=== PATIENT | female | born 1980 | race Caucasian/White ===

== ENCOUNTER 2023-11-04 09:34 | Outpatient (CLI) | payer MEDICAID ==
[~2023-11-04 09:34] MED LIST: ALPR-624 PO; ALPR1TAB7 PO; CLIN-214 PO; CYCL-1 PO; HYDR-4383 PO; PROM25TA14 PO; QUET-1 PO; QUET25TA PO; TOP100T PO; TRAZ150T78 PO
== END 2023-11-04 23:59 | disposition home or self-care (01) ==
LOC: RAD 09:34
PROVIDERS: ATTEND Nurse Practitioner Family
DX: R56.9 Unspecified convulsions (principal)
CPT/HCPCS: 95816

== ENCOUNTER 2023-11-15 14:30 | Inpatient (IN) | payer MEDICAID ==
[2023-11-15] VITALS (10 sets, daily range): BP systolic 120–134; BP diastolic 72–86; PULSE 71–102; RESP 16–28; TEMP 96.8–97.9; O2SAT 93–100
[~2023-11-15] VITALS: Ht 162.6 cm; Wt 77.5 kg
[2023-11-15 15:02] LABS: BASOPHILS # (AUTO) 0.1 X10'3 (0-0.2); BASOPHILS % (AUTO) 0.6 % (0-1); EOSINOPHILS # (AUTO) 0.2 X10'3 (0-0.9); EOSINOPHILS % (AUTO) 1.2 % (0-6); HEMATOCRIT 37.6 % (35.0-45.0); HEMOGLOBIN 12.3 g/dl (12.0-16.0); LYMPHOCYTES % (AUTO) 31.4 % (21-51); MEAN CORPUSCULAR HEMOGLOBIN 30.9 PG (27.0-31.0); MEAN CORPUSCULAR HGB CONC 32.8 g/dL (33.0-36.5); MEAN CORPUSCULAR VOLUME 94.1 FL (78-98); MEAN PLATELET VOLUME 9.2 FL (7.4-10.4); MONOCYTES # (AUTO) 0.7 X10'3 (0-0.9); MONOCYTES % (AUTO) 5.3 % (2-12); NEUTROPHILS # (AUTO) 7.8 X10'3 (1.8-7.7); NEUTROPHILS % (AUTO) 61.5 % (42-75); PLATELET COUNT 321 X10'3 (140-440); RED BLOOD COUNT 3.99 X10'6 (4.20-5.60); RED CELL DISTRIBUTION WIDTH 14.5 % (11.5-14.5); WHITE BLOOD COUNT 12.7 X10'3 (4.5-11.0)
[2023-11-15 15:15] LABS: ALANINE AMINOTRANSFERASE 13 U/L (12-78); ALBUMIN 2.6 G/DL (3.4-5.0); ALBUMIN/GLOBULIN RATIO 0.7 (1.1-1.5); ALKALINE PHOSPHATASE 64 IU/L (46-116); ANION GAP 10 (8-16); BILIRUBIN,TOTAL 0.3 MG/DL (0.1-1.0); BLOOD UREA NITROGEN 8 MG/DL (7-18); BUN/CREATININE RATIO 15.4 (10.0-20.0); CALCIUM 7.9 MG/DL (8.5-10.1); CHLORIDE 110 MMOL/L (99-107); CREATININE 0.52 MG/DL (0.40-0.90); GLUCOSE 78 MG/DL (70-104); LIPASE 25 U/L (16-77); SODIUM 145 MMOL/L (135-145); TOTAL CARBON DIOXIDE 25.4 MMOL/L (24-32); TOTAL PROTEIN 6.1 G/DL (6.4-8.2); eCRCL 118 ML/MIN; eGFR > 90 ML/MIN
[2023-11-15] MEDS: ondansetron/PF 4mg/2ml inj IV ONE (15:18)
[2023-11-15] MEDS: HYDROmorphone 1 mg/ml syringe IV ONE ×2 (15:19→17:13)
[2023-11-15 15:23] LABS: ASPARTATE AMINO TRANSFERASE 21 U/L (10-37); POTASSIUM 3.8 MMOL/L (3.5-5.1)
[2023-11-15] MEDS ORDERED: iohexol 300mg/ml 100ml inj. ONE (15:41)
[2023-11-15] MEDS ORDERED: ondansetron 4mg rapidly disintigrating tab PO PRN (17:20)
[2023-11-15] MEDS ORDERED: HYDROmorphone/PF 0.2 MG/ML SYRINGE IV PRN (17:20)
[2023-11-15] MEDS ORDERED: magnesium Cl slow-release 64mg tablet PO PRN (17:20)
[2023-11-15] MEDS ORDERED: magnesium hydroxide 30ml (MOM) UD suspension PO PRN (17:20)
[2023-11-15] MEDS ORDERED: acetaminophen 325mg tablet PO PRN ×2 (17:20)
[2023-11-15] MEDS ORDERED: mag hydrox/Alum hydrox/simeth 30ml oral suspension PO PRN (17:20)
[2023-11-15] MEDS ORDERED: magnesium 4gm in 100ml NS 100 ML IV PRN (17:20)
[2023-11-15] MEDS ORDERED: HYDROcodone/acetaminophen 10/325mg tab PO PRN (17:20)
[2023-11-15] MEDS ORDERED: HYDROcodone/acetaminophen 5mg/325mg tablet PO PRN (17:20)
[2023-11-15] MEDS ORDERED: magnesium 2GM in 50ml NS 50 ML IV PRN (17:20)
[2023-11-15] MEDS ORDERED: potassium Cl 20 mEq SR tablet PO PRN (17:20)
[2023-11-15] MEDS ORDERED: potassium Cl 40MEQ/1/2NS 520ml 520 ML IV PRN (17:20)
[2023-11-15] MEDS ORDERED: metoclopramide 5 mg/ml inj IV PRN (17:20)
[2023-11-15] MEDS ORDERED: labetalol 20mg/4ml (5mg/ml) syringe IV PRN (17:55)
[2023-11-15] MEDS ORDERED: fentaNYL/PF 50MCG/1 ML 2ML syringe IV PRN ×2 (17:55)
[2023-11-15] MEDS ORDERED: ondansetron/PF 4mg/2ml inj IV PRN (17:55)
[2023-11-15] MEDS ORDERED: hydrALAZINE 20mg/ml inj. IV PRN (17:55)
[2023-11-15] MEDS ORDERED: morphine 2 MG/ML inj. syringe IV PRN (17:55)
[2023-11-15] MEDS: piperacillin/tazo 3.375gm/50ml 50 ML IV ONE (18:10)
[2023-11-15] MEDS: normal saline 1000ml 1,000 ML IV SCH (18:10)
[2023-11-15 18:17] LABS: INR 1.1 INR
[2023-11-15 18:26] LABS: URINE HCG NEGATIVE (NEG)
[2023-11-15 18:32] LABS: BILIRUBIN,URINE NEGATIVE (Neg); CLARITY,URINE CLEAR (Clear); COLOR,URINE STRAW (Yellow); GLUCOSE, URINE NEGATIVE (Neg); KETONES,URINE 15 mg/dl (Neg); LEUKOCYTE ESTERASE ,URINE NEGATIVE (Neg); OCCULT BLOOD,URINE NEGATIVE (Neg); PROTEIN,URINE NEGATIVE (Neg); UROBILINOGEN,URINE 0.2 E.U/dL (0.2-1.0)
[2023-11-15 18:40] LABS: APTT 28 SECONDS (22-32); PROTHROMBIN TIME 11.4 SECONDS (9.0-12.0)
[2023-11-15 18:48] LABS: UA COLLECTION TYPE CLN CATCH MIDSTREAM
[2023-11-15 18:49] LABS: NITRITES, URINE NEGATIVE (Neg)
[2023-11-15] MEDS: HYDROmorphone inj. 0.5 MG/0.5 ML DISP.SYRIN IV PRN (19:48)
[2023-11-15] MEDS: K and/or MAG REPLACEMENT MC SCH (20:00)
[2023-11-15] MEDS: docusate sod 100mg capsule PO SCH (20:00)
[2023-11-15] MEDS ORDERED: sevoflurane 250ml liquid IH ONE (20:14)
[2023-11-15] MEDS ORDERED: MIDAZolam 1 MG/ML 5ML VIAL ONE (20:21)
[2023-11-15] MEDS ORDERED: fentaNYL /PF 50mcg/ml 5ml ampule ONE (20:21)
[2023-11-15] MEDS ORDERED: LIDOcaine 2% (20mg/ml) 5ml vial ONE (20:29)
[2023-11-15] MEDS ORDERED: propofol inj 20 ML IV ONE (20:29)
[2023-11-15] MEDS ORDERED: ondansetron/PF 4mg/2ml inj ONE (20:29)
[2023-11-15] MEDS ORDERED: rocuronium 10mg/ml inj IV ONE (20:29)
[2023-11-15] MEDS ORDERED: acetaminophen 1,000mg/100ml IV 100 ML IV ONE (20:31)
[2023-11-15] MEDS ORDERED: temazepam 15mg capsule PO PRN (21:00)
[2023-11-15] MEDS ORDERED: sugammadex 200mg/2ml injection IV ONE (21:46)
[2023-11-15] MEDS ORDERED: BUPIVACAINE liposomal/PF 13.3 MG/ML vial IM ONE (21:53)
[2023-11-15] MEDS ORDERED: BUPIVAcaine 0.5% inj/PF 30 ML ONE (21:53)
[2023-11-15] MEDS ORDERED: naloxone 0.4 mg/ml inj IV PRN (22:10)
[2023-11-15] MEDS: ringers solution, lacted 1,000 ML IV SCH (22:59)
[2023-11-15] MEDS: morphine 4 MG/ML inj SYRINge IV PRN (23:03)
[2023-11-16] VITALS (13 sets, daily range): BP systolic 112–125; BP diastolic 66–81; PULSE 70–96; RESP 14–18; TEMP 97.1–98.4; O2SAT 95–98
[2023-11-16] MEDS ORDERED: piperacillin/tazo 3.375gm/50ml 50 ML IV SCH
[2023-11-16] MEDS: piperacillin/tazo 3.375gm/50ml 50 ML IV SCH (00:44)
[2023-11-16 06:17] LABS: ALANINE AMINOTRANSFERASE 12 U/L (12-78); ALBUMIN 2.6 G/DL (3.4-5.0); ALBUMIN/GLOBULIN RATIO 0.8 (1.1-1.5); ALKALINE PHOSPHATASE 62 IU/L (46-116); ANION GAP 10 (8-16); ASPARTATE AMINO TRANSFERASE 11 U/L (10-37); BILIRUBIN,TOTAL 0.5 MG/DL (0.1-1.0); BLOOD UREA NITROGEN 8 MG/DL (7-18); BUN/CREATININE RATIO 10.8 (10.0-20.0); CALCIUM 7.9 MG/DL (8.5-10.1); CHLORIDE 107 MMOL/L (99-107); CREATININE 0.74 MG/DL (0.40-0.90); GLUCOSE 120 MG/DL (70-104); MAGNESIUM 1.8 MG/DL (1.5-2.4); SODIUM 141 MMOL/L (135-145); TOTAL PROTEIN 5.9 G/DL (6.4-8.2); eCRCL 83 ML/MIN; eGFR 85 ML/MIN
[2023-11-16 06:24] LABS: HEMOGLOBIN 12.4 g/dl (12.0-16.0); MEAN CORPUSCULAR HEMOGLOBIN 31.4 PG (27.0-31.0); MEAN CORPUSCULAR HGB CONC 33.5 g/dL (33.0-36.5); MEAN CORPUSCULAR VOLUME 93.7 FL (78-98); MEAN PLATELET VOLUME 9.4 FL (7.4-10.4); PLATELET COUNT 282 X10'3 (140-440); RED BLOOD COUNT 3.95 X10'6 (4.20-5.60); RED CELL DISTRIBUTION WIDTH 14.3 % (11.5-14.5); WHITE BLOOD COUNT 20.8 X10'3 (4.5-11.0)
[2023-11-16] MEDS: pantoprazole 40 MG vial IV SCH (07:34)
[2023-11-16 09:28] LABS: TOTAL CELLS COUNTED 100
[2023-11-16 09:29] LABS: PLATELET ESTIMATE NORMAL
[2023-11-16] MEDS: HYDROmorphone 1 mg/ml syringe IV PRN (11:35)
[2023-11-16] MEDS: ondansetron/PF 4mg/2ml inj IV PRN (11:41)
[2023-11-16] MEDS ORDERED: naloxone 0.4 mg/ml inj IV PRN (12:25)
[2023-11-16] MEDS: HYDROmorph/NS 0.2 mg/ml PCA 100 ML IV SCH (13:00)
[2023-11-16] MEDS ORDERED: UBRO50TA PO ×2 (18:43→18:48)
[2023-11-16] MEDS ORDERED: SUMA6VIA17 SQ (18:49)
[2023-11-17 06:45] LABS: BASOPHILS # (AUTO) 0.3 X10'3 (0-0.2); BASOPHILS % (AUTO) 1.8 % (0-1); EOSINOPHILS # (AUTO) 0.1 X10'3 (0-0.9); EOSINOPHILS % (AUTO) 0.4 % (0-6); HEMOGLOBIN 11.1 g/dl (12.0-16.0); LYMPHOCYTES # (AUTO) 2.8 X10'3 (1.1-4.8); LYMPHOCYTES % (AUTO) 17.5 % (21-51); MEAN CORPUSCULAR HEMOGLOBIN 31.8 PG (27.0-31.0); MEAN CORPUSCULAR HGB CONC 33.7 g/dL (33.0-36.5); MEAN CORPUSCULAR VOLUME 94.3 FL (78-98); MEAN PLATELET VOLUME 9.6 FL (7.4-10.4); NEUTROPHILS # (AUTO) 11.9 X10'3 (1.8-7.7); NEUTROPHILS % (AUTO) 74.3 % (42-75); PLATELET COUNT 234 X10'3 (140-440); RED CELL DISTRIBUTION WIDTH 14.2 % (11.5-14.5)
[2023-11-17 07:07] LABS: ALANINE AMINOTRANSFERASE 14 U/L (12-78); ALBUMIN 2.6 G/DL (3.4-5.0); ALBUMIN/GLOBULIN RATIO 0.9 (1.1-1.5); ALKALINE PHOSPHATASE 60 IU/L (46-116); ANION GAP 7 (8-16); ASPARTATE AMINO TRANSFERASE 15 U/L (10-37); BILIRUBIN,TOTAL 0.4 MG/DL (0.1-1.0); BLOOD UREA NITROGEN 8 MG/DL (7-18); BUN/CREATININE RATIO 10.3 (10.0-20.0); CALCIUM 7.4 MG/DL (8.5-10.1); CHLORIDE 108 MMOL/L (99-107); CREATININE 0.78 MG/DL (0.40-0.90); GLUCOSE 109 MG/DL (70-104); MAGNESIUM 1.7 MG/DL (1.5-2.4); POTASSIUM 3.5 MMOL/L (3.5-5.1); SODIUM 141 MMOL/L (135-145); TOTAL PROTEIN 5.5 G/DL (6.4-8.2); eCRCL 79 ML/MIN; eGFR 80 ML/MIN
[2023-11-17 07:18] VITALS: BP 101/52; PULSE 88; RESP 16; TEMP 97.7; O2SAT 97
[2023-11-17 07:54] VITALS: RESP 16; O2SAT 97
[2023-11-17 11:00] VITALS: BP 101/52; PULSE 88; RESP 16; TEMP 97.2; O2SAT 97
[2023-11-17 14:15] LABS: HEMATOCRIT 33.8 % (35.0-45.0); HEMOGLOBIN 11.2 g/dl (12.0-16.0); MEAN CORPUSCULAR HEMOGLOBIN 30.9 PG (27.0-31.0); MEAN CORPUSCULAR HGB CONC 33.1 g/dL (33.0-36.5); MEAN CORPUSCULAR VOLUME 93.4 FL (78-98); MEAN PLATELET VOLUME 9.1 FL (7.4-10.4); PLATELET COUNT 248 X10'3 (140-440); RED BLOOD COUNT 3.62 X10'6 (4.20-5.60); WHITE BLOOD COUNT 15.3 X10'3 (4.5-11.0)
[2023-11-17] MEDS ORDERED: PCA WASTE DOCUMENTATION 1 MG ML MC SCH (14:20)
[2023-11-17] MEDS: ketorolac trometh. 30mg/ml inj. IV PRN (16:02)
[2023-11-17 18:00] VITALS: BP 105/72; PULSE 73; RESP 16; TEMP 97.6; O2SAT 95
[2023-11-17 20:00] VITALS: BP 121/81; PULSE 65; RESP 14; TEMP 97.6; O2SAT 100
[2023-11-17 22:00] VITALS: BP 121/81; PULSE 65; RESP 14; TEMP 97.6; O2SAT 100
[2023-11-17 22:57] LABS: HEMATOCRIT 32.7 % (35.0-45.0); HEMOGLOBIN 10.9 g/dl (12.0-16.0); MEAN CORPUSCULAR HEMOGLOBIN 31.3 PG (27.0-31.0); MEAN CORPUSCULAR HGB CONC 33.3 g/dL (33.0-36.5); MEAN PLATELET VOLUME 9.1 FL (7.4-10.4); PLATELET COUNT 232 X10'3 (140-440); RED BLOOD COUNT 3.48 X10'6 (4.20-5.60); RED CELL DISTRIBUTION WIDTH 14.4 % (11.5-14.5); WHITE BLOOD COUNT 12.8 X10'3 (4.5-11.0)
[2023-11-18] VITALS (9 sets, daily range): BP systolic 108–142; BP diastolic 64–79; PULSE 63–73; RESP 14–18; TEMP 97.5–97.8; O2SAT 98–100
[2023-11-18] MEDS: piperacillin/tazo 4.5gm/100ml 100 ML IV SCH (00:31)
[2023-11-18 06:28] LABS: BASOPHILS # (AUTO) 0.1 X10'3 (0-0.2); BASOPHILS % (AUTO) 0.8 % (0-1); EOSINOPHILS # (AUTO) 0.1 X10'3 (0-0.9); EOSINOPHILS % (AUTO) 1.4 % (0-6); HEMATOCRIT 33.3 % (35.0-45.0); HEMOGLOBIN 11.2 g/dl (12.0-16.0); LYMPHOCYTES # (AUTO) 3.4 X10'3 (1.1-4.8); LYMPHOCYTES % (AUTO) 32.9 % (21-51); MEAN CORPUSCULAR HEMOGLOBIN 31.6 PG (27.0-31.0); MEAN CORPUSCULAR HGB CONC 33.7 g/dL (33.0-36.5); MEAN CORPUSCULAR VOLUME 93.8 FL (78-98); MEAN PLATELET VOLUME 9.5 FL (7.4-10.4); MONOCYTES # (AUTO) 0.8 X10'3 (0-0.9); MONOCYTES % (AUTO) 7.8 % (2-12); NEUTROPHILS # (AUTO) 5.8 X10'3 (1.8-7.7); NEUTROPHILS % (AUTO) 57.1 % (42-75); PLATELET COUNT 232 X10'3 (140-440); RED BLOOD COUNT 3.55 X10'6 (4.20-5.60); RED CELL DISTRIBUTION WIDTH 14.1 % (11.5-14.5); WHITE BLOOD COUNT 10.2 X10'3 (4.5-11.0)
[2023-11-18 06:40] LABS: ALANINE AMINOTRANSFERASE 15 U/L (12-78); ALBUMIN 2.6 G/DL (3.4-5.0); ALBUMIN/GLOBULIN RATIO 0.9 (1.1-1.5); ALKALINE PHOSPHATASE 58 IU/L (46-116); ANION GAP 6 (8-16); ASPARTATE AMINO TRANSFERASE 16 U/L (10-37); BILIRUBIN,TOTAL 0.4 MG/DL (0.1-1.0); BLOOD UREA NITROGEN 5 MG/DL (7-18); BUN/CREATININE RATIO 6.5 (10.0-20.0); CALCIUM 7.7 MG/DL (8.5-10.1); CHLORIDE 108 MMOL/L (99-107); CREATININE 0.77 MG/DL (0.40-0.90); GLUCOSE 88 MG/DL (70-104); MAGNESIUM 1.8 MG/DL (1.5-2.4); POTASSIUM 3.4 MMOL/L (3.5-5.1); SODIUM 143 MMOL/L (135-145); TOTAL CARBON DIOXIDE 29.2 MMOL/L (24-32); TOTAL PROTEIN 5.6 G/DL (6.4-8.2); eCRCL 80 ML/MIN; eGFR 81 ML/MIN
[2023-11-18] MEDS: potassium Cl 20 mEq SR tablet PO PRN (07:04)
[2023-11-18 15:40] LABS: HEMATOCRIT 36.6 % (35.0-45.0); HEMOGLOBIN 12.1 g/dl (12.0-16.0); MEAN CORPUSCULAR VOLUME 94.2 FL (78-98); MEAN PLATELET VOLUME 9.7 FL (7.4-10.4); PLATELET COUNT 264 X10'3 (140-440); RED BLOOD COUNT 3.89 X10'6 (4.20-5.60); RED CELL DISTRIBUTION WIDTH 14.2 % (11.5-14.5); WHITE BLOOD COUNT 11.5 X10'3 (4.5-11.0)
[2023-11-19] VITALS (7 sets, daily range): BP systolic 112–135; BP diastolic 72–89; PULSE 63–72; RESP 14–17; TEMP 96.7–98.7; O2SAT 97–100
[2023-11-19 06:21] LABS: BASOPHILS # (AUTO) 0.1 X10'3 (0-0.2); BASOPHILS % (AUTO) 0.6 % (0-1); EOSINOPHILS # (AUTO) 0.2 X10'3 (0-0.9); EOSINOPHILS % (AUTO) 1.9 % (0-6); HEMATOCRIT 34.2 % (35.0-45.0); HEMOGLOBIN 11.4 g/dl (12.0-16.0); LYMPHOCYTES # (AUTO) 2.9 X10'3 (1.1-4.8); LYMPHOCYTES % (AUTO) 30.1 % (21-51); MEAN CORPUSCULAR HEMOGLOBIN 31.3 PG (27.0-31.0); MEAN CORPUSCULAR HGB CONC 33.4 g/dL (33.0-36.5); MEAN CORPUSCULAR VOLUME 93.9 FL (78-98); MEAN PLATELET VOLUME 9.7 FL (7.4-10.4); MONOCYTES # (AUTO) 0.7 X10'3 (0-0.9); MONOCYTES % (AUTO) 7.4 % (2-12); NEUTROPHILS # (AUTO) 5.9 X10'3 (1.8-7.7); PLATELET COUNT 257 X10'3 (140-440); RED BLOOD COUNT 3.65 X10'6 (4.20-5.60); RED CELL DISTRIBUTION WIDTH 13.9 % (11.5-14.5); WHITE BLOOD COUNT 9.8 X10'3 (4.5-11.0)
[2023-11-19 06:31] LABS: ALANINE AMINOTRANSFERASE 16 U/L (12-78); ALBUMIN 2.4 G/DL (3.4-5.0); ALBUMIN/GLOBULIN RATIO 0.7 (1.1-1.5); ALKALINE PHOSPHATASE 64 IU/L (46-116); ANION GAP 7 (8-16); ASPARTATE AMINO TRANSFERASE 17 U/L (10-37); BILIRUBIN,TOTAL 0.4 MG/DL (0.1-1.0); BLOOD UREA NITROGEN 3 MG/DL (7-18); BUN/CREATININE RATIO 3.9 (10.0-20.0); CALCIUM 7.9 MG/DL (8.5-10.1); CHLORIDE 106 MMOL/L (99-107); CREATININE 0.76 MG/DL (0.40-0.90); GLUCOSE 99 MG/DL (70-104); MAGNESIUM 1.6 MG/DL (1.5-2.4); POTASSIUM 3.6 MMOL/L (3.5-5.1); SODIUM 141 MMOL/L (135-145); TOTAL CARBON DIOXIDE 28.3 MMOL/L (24-32); TOTAL PROTEIN 5.7 G/DL (6.4-8.2); eCRCL 81 ML/MIN; eGFR 82 ML/MIN
[2023-11-19] MEDS: magnesium hydroxide 30ml (MOM) UD suspension PO SCH (11:11)
[2023-11-19] MEDS: gabapentin 300mg capsule PO SCH (11:11)
[2023-11-19] MEDS: ketorolac trometh. 30mg/ml inj. IV SCH (11:17)
[2023-11-19] MEDS: PCA WASTE DOCUMENTATION 1 MG ML MC PRN (16:07)
[2023-11-20 06:17] LABS: ALANINE AMINOTRANSFERASE 23 U/L (12-78); ALBUMIN 2.5 G/DL (3.4-5.0); ALBUMIN/GLOBULIN RATIO 0.8 (1.1-1.5); ALKALINE PHOSPHATASE 61 IU/L (46-116); ANION GAP 7 (8-16); ASPARTATE AMINO TRANSFERASE 20 U/L (10-37); BILIRUBIN,TOTAL 0.5 MG/DL (0.1-1.0); BLOOD UREA NITROGEN 5 MG/DL (7-18); BUN/CREATININE RATIO 6.3 (10.0-20.0); CHLORIDE 106 MMOL/L (99-107); GLUCOSE 90 MG/DL (70-104); POTASSIUM 3.3 MMOL/L (3.5-5.1); SODIUM 144 MMOL/L (135-145); TOTAL CARBON DIOXIDE 30.9 MMOL/L (24-32); TOTAL PROTEIN 5.8 G/DL (6.4-8.2); eCRCL 77 ML/MIN; eGFR 78 ML/MIN
[2023-11-20 06:18] LABS: BASOPHILS # (AUTO) 0.1 X10'3 (0-0.2); BASOPHILS % (AUTO) 0.8 % (0-1); EOSINOPHILS # (AUTO) 0.2 X10'3 (0-0.9); EOSINOPHILS % (AUTO) 3.2 % (0-6); HEMATOCRIT 33.7 % (35.0-45.0); HEMOGLOBIN 11.5 g/dl (12.0-16.0); LYMPHOCYTES # (AUTO) 2.7 X10'3 (1.1-4.8); LYMPHOCYTES % (AUTO) 35.6 % (21-51); MEAN CORPUSCULAR HEMOGLOBIN 31.7 PG (27.0-31.0); MEAN CORPUSCULAR HGB CONC 34.1 g/dL (33.0-36.5); MEAN CORPUSCULAR VOLUME 92.9 FL (78-98); MEAN PLATELET VOLUME 9.7 FL (7.4-10.4); MONOCYTES # (AUTO) 0.6 X10'3 (0-0.9); MONOCYTES % (AUTO) 7.3 % (2-12); NEUTROPHILS % (AUTO) 53.1 % (42-75); PLATELET COUNT 271 X10'3 (140-440); RED BLOOD COUNT 3.63 X10'6 (4.20-5.60); RED CELL DISTRIBUTION WIDTH 13.8 % (11.5-14.5); WHITE BLOOD COUNT 7.5 X10'3 (4.5-11.0)
[2023-11-20 06:53] VITALS: BP 117/78; PULSE 64; RESP 16; TEMP 98.2; O2SAT 98
[2023-11-20 08:00] VITALS: RESP 18
[2023-11-20 10:57] VITALS: BP 106/75; PULSE 63; RESP 14; TEMP 97.9; O2SAT 99
[2023-11-20] MEDS ORDERED: potassium Cl 20 mEq SR tablet PO PRN (17:35)
[2023-11-20] MEDS ORDERED: potassium Cl 40MEQ/1/2NS 520ml 520 ML IV PRN (17:35)
[2023-11-20] MEDS ORDERED: magnesium 2GM in 50ml NS 50 ML IV PRN (17:35)
[2023-11-20] MEDS ORDERED: magnesium 4gm in 100ml NS 100 ML IV PRN (17:35)
[2023-11-20] MEDS ORDERED: magnesium Cl slow-release 64mg tablet PO PRN (17:35)
[2023-11-20] MEDS: potassium Cl 20 mEq SR tablet PO PRN (17:43)
[2023-11-20 18:00] VITALS: BP 137/74; PULSE 74; RESP 16; TEMP 97.5; O2SAT 100
[2023-11-20] MEDS: K and/or MAG REPLACEMENT MC SCH (19:42)
[2023-11-20 20:00] VITALS: RESP 16; O2SAT 97
[2023-11-20 22:00] VITALS: BP 122/74; PULSE 65; RESP 16; TEMP 99.3; O2SAT 97
[2023-11-21 06:00] VITALS: BP 114/73; PULSE 73; RESP 14; RESP 16; TEMP 98; O2SAT 99
[2023-11-21] MEDS: pantoprazole 40mg Tablet.DR PO SCH (07:19)
[2023-11-21] MEDS ORDERED: HYDROmorphone inj. 0.5 MG/0.5 ML DISP.SYRIN IV PRN (07:35)
[2023-11-21 11:55] VITALS: BP 127/80; PULSE 79; RESP 16; TEMP 97.9; O2SAT 98
[2023-11-21] MEDS: oxyCODONE/APAP 10/325mg tablet PO PRN (12:10)
[2023-11-21 19:00] VITALS: BP 123/76; PULSE 94; RESP 20; TEMP 99; O2SAT 98
[2023-11-21 22:00] VITALS: BP 119/86; PULSE 72; RESP 16; TEMP 98.4; O2SAT 99
[2023-11-22 07:00] VITALS: RESP 18
[2023-11-22 07:06] VITALS: BP 134/88; PULSE 84; RESP 16; TEMP 97.5; O2SAT 98
[2023-11-22 11:27] VITALS: BP 116/81; PULSE 71; RESP 18; TEMP 98.1; O2SAT 99
[2023-11-22 12:52] VITALS: RESP 18; O2SAT 99
[2023-11-22] MEDS: metoclopramide 5 mg/ml inj IV SCH (14:42)
[2023-11-22 19:00] VITALS: BP 125/75; PULSE 78; RESP 16; TEMP 97.8; O2SAT 96
[2023-11-22] MEDS: diatr meglu/diatrizoate 30ml oral sol.-(3 dose) bottle PO SCH (21:07)
[2023-11-22 22:00] VITALS: BP 119/70; PULSE 85; RESP 14; TEMP 97.7; O2SAT 98
[2023-11-23] MEDS: piperacillin/tazo 4.5gm/100ml 100 ML IV SCH (00:26)
[2023-11-23 06:31] LABS: ALBUMIN 2.5 G/DL (3.4-5.0); ALBUMIN/GLOBULIN RATIO 0.7 (1.1-1.5); ANION GAP 7 (8-16); ASPARTATE AMINO TRANSFERASE 22 U/L (10-37); BILIRUBIN,TOTAL 0.4 MG/DL (0.1-1.0); BLOOD UREA NITROGEN 7 MG/DL (7-18); BUN/CREATININE RATIO 8.3 (10.0-20.0); CALCIUM 7.8 MG/DL (8.5-10.1); CHLORIDE 110 MMOL/L (99-107); CREATININE 0.84 MG/DL (0.40-0.90); GLUCOSE 92 MG/DL (70-104); POTASSIUM 3.6 MMOL/L (3.5-5.1); SODIUM 144 MMOL/L (135-145); TOTAL CARBON DIOXIDE 26.6 MMOL/L (24-32); TOTAL PROTEIN 6.1 G/DL (6.4-8.2); eCRCL 73 ML/MIN; eGFR 73 ML/MIN
[2023-11-23 06:32] LABS: ALANINE AMINOTRANSFERASE 43 U/L (12-78); ALKALINE PHOSPHATASE 64 IU/L (46-116)
[2023-11-23 07:00] VITALS: BP 135/77; PULSE 82; RESP 18; TEMP 98.2; O2SAT 98
[2023-11-23 07:30] VITALS: RESP 18; O2SAT 98
[2023-11-23] MEDS ORDERED: AMOX-580 PO (10:36)
[2023-11-23] MEDS ORDERED: PANT40TA54 PO (10:36)
[2023-11-23] MEDS ORDERED: OXYC1TAB17 PO (10:48)
[2023-11-23 10:52] VITALS: RESP 18
[2023-11-23 11:04] VITALS: BP 114/74; PULSE 88; RESP 18; TEMP 98.1; O2SAT 99
[2023-11-23 11:40] VITALS: BP 114/74; PULSE 71; RESP 18; TEMP 98.1; O2SAT 99
== END 2023-11-23 12:15 | disposition home or self-care (01) | DRG 231 ==
LOC: ER 14:30 → ED HOLD 17:20 → SUR 3N 23:40
PROVIDERS: ADMIT Family Medicine; ATTEND Internal Medicine
PROC: BW201ZZ Computerized Tomography (CT Scan) of Abdomen using Low Osmolar Contrast (ICD-10-PCS; 2023-11-15)
PROC: 0DBN0ZZ Excision of Sigmoid Colon, Open Approach (ICD-10-PCS; principal; 2023-11-15 20:14)
DX: K63.1 Perforation of intestine (nontraumatic) (principal); E87.6 Hypokalemia; K59.00 Constipation, unspecified; K21.00 Gastro-esophageal reflux disease with esophagitis, without bleeding; Z79.899 Other long term (current) drug therapy; Z90.710 Acquired absence of both cervix and uterus
CPT/HCPCS: 36415; 71045; 74176; 74177; 80053; 81003; 81025; 83605; 83690; 83735; 85007; 85025; 85027; 85610; 85730; 87040; 87081; 93005; 96374; 96375; 96376; 99285; A4615; A4618; A6212; A6258; A6407; A6449; A7000; C1758; C9113; C9290; G0378; J0131; J1100; J1170; J1885; J2250; J2270; J2405; J2543; J2704; J2765; J3010; J3490; J7030; J7120; Q9963; Q9967; S0020

== ENCOUNTER 2023-11-25 10:16 | Emergency (ER) | payer MEDICAID ==
[~2023-11-25] VITALS: Ht 162.6 cm; Wt 76.5 kg
[~2023-11-25 10:16] MED LIST changes: -ALPR-624 PO; -ALPR1TAB7 PO; +AMOX-580 PO; -CLIN-214 PO; -CYCL-1 PO; -HYDR-4383 PO; +OXYC1TAB17 PO; +PANT40TA54 PO; -PROM25TA14 PO; -QUET-1 PO; -QUET25TA PO; +SUMA6VIA17 SQ; -TOP100T PO; -TRAZ150T78 PO; +UBRO50TA PO
[2023-11-25 11:04] LABS: BILIRUBIN,URINE NEGATIVE (Neg); CLARITY,URINE CLOUDY (Clear); COLOR,URINE YELLOW (Yellow); GLUCOSE, URINE NEGATIVE (Neg); KETONES,URINE TRACE mg/dl (Neg); LEUKOCYTE ESTERASE ,URINE NEGATIVE (Neg); NITRITES, URINE NEGATIVE (Neg); OCCULT BLOOD,URINE NEGATIVE (Neg); PROTEIN,URINE NEGATIVE (Neg); UROBILINOGEN,URINE 0.2 E.U/dL (0.2-1.0)
[2023-11-25 11:07] LABS: BASOPHILS # (AUTO) 0.1 X10'3 (0-0.2); BASOPHILS % (AUTO) 0.9 % (0-1); EOSINOPHILS # (AUTO) 0.1 X10'3 (0-0.9); EOSINOPHILS % (AUTO) 0.7 % (0-6); HEMATOCRIT 39.6 % (35.0-45.0); HEMOGLOBIN 13.1 g/dl (12.0-16.0); LYMPHOCYTES # (AUTO) 1.8 X10'3 (1.1-4.8); LYMPHOCYTES % (AUTO) 13.4 % (21-51); MEAN CORPUSCULAR HEMOGLOBIN 30.9 PG (27.0-31.0); MEAN CORPUSCULAR HGB CONC 33.1 g/dL (33.0-36.5); MEAN CORPUSCULAR VOLUME 93.4 FL (78-98); MONOCYTES # (AUTO) 0.4 X10'3 (0-0.9); MONOCYTES % (AUTO) 3.1 % (2-12); NEUTROPHILS # (AUTO) 10.8 X10'3 (1.8-7.7); NEUTROPHILS % (AUTO) 81.9 % (42-75); PLATELET COUNT 376 X10'3 (140-440); RED BLOOD COUNT 4.24 X10'6 (4.20-5.60); RED CELL DISTRIBUTION WIDTH 14.1 % (11.5-14.5); WHITE BLOOD COUNT 13.2 X10'3 (4.5-11.0)
[2023-11-25 11:07] LABS: UA COLLECTION TYPE CLN CATCH MIDSTREAM
[2023-11-25 11:10] LABS: SQUAMOUS EPITHELIAL CELL,UR MANY /LPF (FEW)
[2023-11-25 11:12] LABS: MUCUS STRANDS MANY /LPF (Neg)
[2023-11-25 11:13] LABS: BACTERIA,URINE FEW /HPF (Neg); CAL OXALATE CRYSTALS 4+ /HPF (NEGATIVE); RBC,URINE 0-2 /HPF (0-2); WBC,URINE 0-4 /HPF (0-4)
[2023-11-25 11:27] LABS: ALANINE AMINOTRANSFERASE 36 U/L (12-78); ALBUMIN 2.8 G/DL (3.4-5.0); ALBUMIN/GLOBULIN RATIO 0.7 (1.1-1.5); ALKALINE PHOSPHATASE 56 IU/L (46-116); ASPARTATE AMINO TRANSFERASE 14 U/L (10-37); BILIRUBIN,TOTAL 0.2 MG/DL (0.1-1.0); BLOOD UREA NITROGEN 15 MG/DL (7-18); CALCIUM 8.3 MG/DL (8.5-10.1); CHLORIDE 109 MMOL/L (99-107); CREATININE 0.75 MG/DL (0.40-0.90); GLUCOSE 107 MG/DL (70-104); LIPASE 26 U/L (16-77); POTASSIUM 3.9 MMOL/L (3.5-5.1); TOTAL PROTEIN 6.6 G/DL (6.4-8.2); eCRCL 82 ML/MIN; eGFR 84 ML/MIN
[2023-11-25 11:40] LABS: ANION GAP 11 (8-16); SODIUM 145 MMOL/L (135-145)
[2023-11-25] MEDS: dexamethasone sod phosphate 10mg/ml inj IV STA (13:02)
[2023-11-25] MEDS: diphenhydrAMINE 50 mg/ml inj IV ONE (13:02)
[2023-11-25 13:14] VITALS: TEMP 98
[2023-11-25] MEDS: normal saline 1000ml 1,000 ML IV ONE (13:37)
[2023-11-25] MEDS: ondansetron/PF 4mg/2ml inj IV ONE (13:37)
[2023-11-25] MEDS: HYDROmorphone inj. 0.5 MG/0.5 ML DISP.SYRIN IV ONE (13:37)
[2023-11-25 14:45] VITALS: BP 119/71; PULSE 74; RESP 18; O2SAT 98
[2023-11-25] MEDS ORDERED: LEVO-65 PO (14:49)
[2023-11-25] MEDS ORDERED: PRED10TA23 PO (14:51)
[2023-11-25] MEDS ORDERED: TRAM1TAB7 PO (14:54)
[2023-11-25] MEDS ORDERED: famotidine/PF IV inj 20 MG in normal saline 100ml IV soln 100 ML IV ONE (15:15)
== END 2023-11-25 15:02 | disposition home or self-care (01) ==
LOC: ER 10:17
DX: L50.0 Allergic urticaria (principal); T36.0X5A Adverse effect of penicillins, initial encounter; G89.29 Other chronic pain; M54.9 Dorsalgia, unspecified; Z87.81 Personal history of (healed) traumatic fracture; Z98.890 Other specified postprocedural states; Z79.899 Other long term (current) drug therapy; Z79.2 Long term (current) use of antibiotics; Y92.89 Other specified places as the place of occurrence of the external cause
CPT/HCPCS: 36415; 80053; 81001; 83690; 85025; 96361; 96374; 96375; 99284; J1100; J1170; J1200; J2405; J7030